=== PATIENT | male | born 1975 | race Hispanic/Latino ===

== ENCOUNTER 2020-09-21 19:47 | Emergency (ER) | payer SELFPAY ==
[~2020-09-21] VITALS: Ht 172.7 cm; Wt 86.2 kg
[2020-09-21 20:07] LABS: BASOPHILS # (AUTO) 0.1 (0.0-0.1); BASOPHILS % 0.6 % (0.0-1.0); EOSINOPHILS # (AUTO) 0.2 (0.0-0.4); EOSINOPHILS % 1.8 % (0.0-6.0); HEMATOCRIT 40.2 % (38.2-49.6); HEMOGLOBIN 13.4 g/dL (14.0-18.0); LYMPHOCYTES # (AUTO) 2.7 (1.0-3.2); LYMPHOCYTES % 24.5 % (18.0-39.1); MEAN CORPUSCULAR HEMOGLOBIN 31.9 pg (28-32); MEAN CORPUSCULAR HGB CONC 33.3 g/dL (31-35); MEAN CORPUSCULAR VOLUME 95.7 fL (81-99); MONOCYTES % 8.6 % (4.4-11.3); NEUTROPHILS # (AUTO) 7.2 (2.1-6.9); NEUTROPHILS % 64.1 % (38.7-80.0); PLATELET COUNT 293 x10e3/uL (140-360); RED CELL DISTRIBUTION WIDTH 12.5 % (11.7-14.4)
[2020-09-21 20:21] LABS: ALBUMIN 4.1 g/dL (3.5-5.0); ALBUMIN/GLOBULIN RATIO 1.1 (0.8-2.0); ANION GAP 16.9 mmol/L (8-16); CALCIUM 9.2 mg/dL (8.4-10.2); CREATININE, SERUM 0.98 mg/dL (0.72-1.25); POTASSIUM 3.9 mmol/L (3.5-5.1)
[2020-09-21 20:28] LABS: CREATINE KINASE MB 0.8 ng/mL (0-5.0)
[2020-09-21 21:27] VITALS: BP 127/87
== END 2020-09-21 21:35 | disposition home or self-care (01) ==
LOC: ER 20:23
DX: R07.9 Chest pain, unspecified (principal); S80.861A Insect bite (nonvenomous), right lower leg, initial encounter; L08.9 Local infection of the skin and subcutaneous tissue, unspecified
CPT/HCPCS: 36415; 71045; 80053; 82550; 82553; 84484; 85025; 93005; 99284

== ENCOUNTER 2024-12-25 19:37 | Emergency (ER) | payer SELFPAY ==
[~2024-12-25] VITALS: Ht 172.7 cm; Wt 86.2 kg
[2024-12-25 20:10] VITALS: PULSE 65; RESP 18; TEMP 98.7
[2024-12-25 21:19] LABS: BASOPHILS % 0.7 % (0.0-1.0); EOSINOPHILS % 1.5 % (0.0-6.0); LYMPHOCYTES % 19.7 % (18.0-39.1); MONOCYTES % 6.2 % (4.4-11.3); NEUTROPHILS % 71.7 % (38.7-80.0); RED CELL DISTRIBUTION WIDTH 12.5 % (11.7-14.4)
[2024-12-25 21:27] LABS: INR 0.95
[2024-12-25 21:35] LABS: EST GLOMERULAR FILTRATION RATE 79.0 ML/MIN (>=60)
[2024-12-25] MEDS: SODIUM CHLORIDE 0.9% 1000ML 1,000 ML IV ONE (22:23)
[2024-12-25] MEDS: ONDANSETRON HCL INJ 2MG/ML 2ML 2 MG/ML VIAL IV STA (22:23)
[2024-12-26] MEDS ORDERED: ONDANSETRON ODT4 MG SL (00:17)
[2024-12-26] MEDS ORDERED: PANTOPRAZOLE SO40 MG PO (00:17)
[2024-12-26 00:25] VITALS: BP 121/68; PULSE 74; RESP 17; TEMP 98.3; O2SAT 98
== END 2024-12-26 00:33 | disposition home or self-care (01) ==
LOC: ER 21:27
DX: R11.2 Nausea with vomiting, unspecified (principal); K29.70 Gastritis, unspecified, without bleeding; R10.13 Epigastric pain; I10 Essential (primary) hypertension
CPT/HCPCS: 36415; 80053; 83690; 85025; 85610; 85730; 99284; J2405; J2470; J7030